=== PATIENT | male | born 1960 | race Caucasian/White ===

== ENCOUNTER 2019-09-29 06:13 | Emergency (ER) | payer OTHER ==
[~2019-09-29] VITALS: Ht 177.8 cm; Wt 83.9 kg
[~2019-09-29 06:13] MED LIST: CIPROFLOXACIN500 M1 PO; FLOMAX PO; FLOMAX0.4 MG PO; HYDROCODONE-AP1 EAC6 PO; NOHOMEMEDICATIONS; PERCOCET; PERCOCET 5-3251 EACH PO; TOBREX5 ML OP; ZOFRAN4 MG PO
[2019-09-29 06:42] LABS: HEMATOCRIT 44.2 % (42.0-52.0); MCH 30.5 pg (26.0-34.0); MCV 89.7 fL (80.0-100.0); NUCLEATED RBCS 0 /100WBC; PLATELET COUNT* 222 thou/uL (150-400); RBC 4.92 mil/uL (4.50-6.00); WBC 12.3 thou/uL (4.0-11.0)
[2019-09-29 06:54] LABS: CALCIUM 9.1 mg/dL (8.5-10.1); CREATININE 1.2 mg/dL (0.6-1.3)
[2019-09-29 06:59] LABS: ALBUMIN 4.2 g/dL (3.4-5.0); TOTAL BILIRUBIN 0.7 mg/dL (<0.1-1.0); TOTAL PROTEIN 8.1 g/dL (6.4-8.2)
[2019-09-29 07:24] LABS: ABSOLUTE MONOCYTES 0.7 thou/uL (0.0-1.2); ABSOLUTE NEUTROPHILS 11.6 thou/uL (1.6-8.1)
[2019-09-29 07:25] LABS: PLATELET ESTIMATE ADEQUATE
[2019-09-29] MEDS ORDERED: ZOFRAN ODT4 MG SUBLING (07:55)
[2019-09-29 08:00] LABS: INFLUENZA A ANTIGEN Negative (Negative); INFLUENZA B ANTIGEN Negative (Negative)
[2019-09-29 08:25] VITALS: BP 135/90
--- NOTE | 2019-09-29 10:10 | EKG ---
[place] [address] ELECTROCARDIOGRAM REPORT Name: MAX LOONEY [id number] Admission: 09/29/19 Attend Phys: Discharge: 09/29/19 Date of : 58 Report #: [id number] THIS REPORT FOR: //name// [facility] ED Test Date: 2019-09-29 Test Time: 06:37:04 Pat Name: MAX LOONEY Department: Room: Gender: M Certified Surgical Technician: [place] : 1960 Requested By: Darren Jansen Order Number: [id number] MD: Joe Fitzgerald Measurements Intervals [place] Rate: 108 P: 44 [place]: 150 QRS: 43 QRSD: 90 T: 17 QT: 317 QTc: 425 Interpretive Statements Sinus tachycardia No previous ECG available for comparison Electronically Signed On 09-29-2019 10:10:18 [employer] by Joe Fitzgerald [email or web address] <ELECTRONICALLY SIGNED> By: Joe Fitzgerald MD, [facility] 09/29/19 1010 [id number] Joe Fitzgerald MD, FACC /EPI
== END 2019-09-29 08:32 | disposition home or self-care (01) ==
LOC: M.ERS 06:13
PROVIDERS: Emergency Medicine Emergency Medical Services; Family Medicine
DX: R11.2 Nausea with vomiting, unspecified (principal); R19.7 Diarrhea, unspecified; Z87.442 Personal history of urinary calculi; Z98.890 Other specified postprocedural states; Z88.0 Allergy status to penicillin

== ENCOUNTER 2021-09-17 10:59 | Emergency (ER) | payer OTHER ==
[~2021-09-17] VITALS: Ht 177.8 cm; Wt 81.7 kg
[~2021-09-17 10:59] MED LIST changes: +ZOFRAN ODT4 MG SUBLING
[2021-09-17 11:50] LABS: INFLUENZA A ANTIGEN Negative (Negative); INFLUENZA B ANTIGEN Negative (Negative)
[2021-09-17] MEDS ORDERED: ZPAK PO (12:00)
[2021-09-17] MEDS ORDERED: ZOFRAN ODT4 MG DISSOLVE (12:00)
[2021-09-17] MEDS ORDERED: DEXAMETHASONE 44 M1 PO (12:00)
[2021-09-17] MEDS ORDERED: PROMETH-CODEIN 65 ML PO (12:00)
[2021-09-17 12:21] VITALS: BP 124/100
== END 2021-09-17 12:21 | disposition home or self-care (01) ==
LOC: M.ERS 10:59
PROVIDERS: Nurse Practitioner Family
DX: U07.1 COVID-19 (principal); Z88.0 Allergy status to penicillin